=== PATIENT | female | born 1990 | race African-American/Black ===

== ENCOUNTER 2019-08-18 12:34 | Emergency (ER) | payer OTHER ==
[~2019-08-18] VITALS: Ht 167.6 cm; Wt 85.7 kg
[2019-08-18 14:19] LABS: URINE BILIRUBIN NEGATIVE (Negative); URINE BLOOD NEGATIVE (Negative); URINE CLARITY CLEAR; URINE COLOR YELLOW; URINE GLUCOSE-RANDOM* NEGATIVE (Negative); URINE KETONES NEGATIVE (Negative); URINE LEUKOCYTES-REFLEX NEGATIVE (Negative); URINE NITRITE-REFLEX NEGATIVE (Negative); URINE PROTEIN (DIPSTICK) NEGATIVE (Negative); URINE UROBILINOGEN 0.2 E.U./dl (0.2-1.0)
[2019-08-18] MEDS ORDERED: ADDERALL 20 MG20 MG PO (14:31)
[2019-08-18 15:17] LABS: ABSOLUTE NEUTROPHILS 4.1 thou/uL (1.4-8.2); BASOPHILS 1.2 % (0.0-2.0); HEMATOCRIT 36.7 % (37.0-47.0); HEMOGLOBIN 11.7 gm/dL (12.0-15.0); MCHC 31.8 g/dL (28.0-37.0); MCV 87.9 fL (80.0-100.0); PLATELET COUNT 353 thou/uL (150-400); POLYS 58.8 % (36.0-66.0); RBC 4.18 mil/uL (4.20-5.00); RDW 15.6 % (10.5-14.5); WBC 7.1 thou/uL (4.0-11.0)
[2019-08-18 15:25] LABS: CALCIUM 9.1 mg/dL (8.5-10.1); CREATININE 0.9 mg/dL (0.6-1.0); POTASSIUM 3.7 mmol/L (3.5-5.1)
[2019-08-18 15:31] LABS: ALBUMIN 3.9 g/dL (3.4-5.0); TOTAL BILIRUBIN 0.4 mg/dL (<0.1-1.0); TOTAL PROTEIN 8.2 g/dL (6.4-8.2)
[2019-08-18 17:23] VITALS: BP 112/78
== END 2019-08-18 17:10 | disposition home or self-care (01) ==
LOC: ER 12:34
PROVIDERS: Physician Assistant
DX: R53.1 Weakness (principal)

== ENCOUNTER 2020-06-05 12:11 | Emergency (ER) | payer OTHER ==
[~2020-06-05] VITALS: Ht 167.6 cm; Wt 84.4 kg
[~2020-06-05 12:11] MED LIST: ADDERALL 20 MG20 MG PO
[2020-06-05] MEDS ORDERED: MOBIC7.5 MG PO (13:01)
[2020-06-05] MEDS ORDERED: CRUTCHES MISCELL (13:57)
[2020-06-05 14:00] VITALS: BP 119/76
== END 2020-06-05 14:00 | disposition home or self-care (01) ==
LOC: ER 12:11
DX: S93.402A Sprain of unspecified ligament of left ankle, initial encounter (principal); S93.602A Unspecified sprain of left foot, initial encounter; Z79.899 Other long term (current) drug therapy; W10.9XXA Fall (on) (from) unspecified stairs and steps, initial encounter; Y93.89 Activity, other specified; Y92.89 Other specified places as the place of occurrence of the external cause; Y99.8 Other external cause status

== ENCOUNTER 2021-09-11 13:16 | Emergency (ER) | payer OTHER ==
[~2021-09-11] VITALS: Ht 167.6 cm; Wt 81.7 kg
[~2021-09-11 13:16] MED LIST changes: +CRUTCHES MISCELL; +MOBIC7.5 MG PO
[2021-09-11 14:58] VITALS: BP 108/73
== END 2021-09-11 15:35 | disposition home or self-care (01) ==
LOC: ER 13:16
DX: J10.1 Influenza due to other identified influenza virus with other respiratory manifestations (principal); Z20.822 Contact with and (suspected) exposure to COVID-19; Z90.89 Acquired absence of other organs; Z79.899 Other long term (current) drug therapy; Z79.891 Long term (current) use of opiate analgesic